=== PATIENT | male | born 1965 | race American Indian/Alaskan Native ===

== ENCOUNTER 2019-10-19 08:24 | Emergency (ER) | payer BC ==
[2019-10-19 08:49] VITALS: BP 135/84
--- NOTE | 2019-10-19 10:27 | Emergency Department Report ---
HPI - General Chief Complaint: Urogenital-Male Time Seen by Provider: 10/19/19 09:58 - HPI HPI: This is a 54-year-old -[place] male who presents to the emergency department with complaint of suprapubic pain that is been going on a few weeks but worsened over the past few days. The patient originally saw his primary care physician who felt that he may have BPH and he was referred to Dr. Farris, urology, who per the patient agreed with the treatment plan thus far. Patient recently went to 1 of the [facility] emergency departments for the same suprapubic pain, as well as some chest discomfort he was having. He says that he had a cardiac work-up there that was negative and he was told that "there is nothing wrong with my heart." Patient says that he stopped taking the prescribed Flomax a few days ago because he began having some strange burning sensation in his chest and he equated this to the Flomax, which was the last medication he had taken that evening. Patient says he is able to urinate but sometimes the stream is stronger than other times and the patient is unsure whether he fully empties his bladder. The patient says that he also had a diagnosis of prostatitis for which he is currently on Bactrim. ED Past Medical Hx - Past Medical History Previous Medical History?: Yes Additional medical history: Prostatitis - Surgical History Past Surgical History?: Yes Hx Appendectomy: Yes Additional Surgical History: Knee surgery - Social History Smoking Status: Never Smoker Substance Use Type: None ED Review of Systems ROS: Stated complaint: LOWER ABD PAIN Other details as noted in HPI Comment: All other systems reviewed and negative Constitutional: denies: chills, fever Respiratory: denies: shortness of breath Cardiovascular: denies: chest pain Gastrointestinal: abdominal pain. denies: vomiting Genitourinary: denies: dysuria, discharge Musculoskeletal: denies: back pain, arthralgia Physical Exam - Physical Exam Vital Signs: Vital Signs 10/19/19 08:28 Temperature 98.4 F Pulse Rate 90 Respiratory 17 Rate Blood Pressure 135/84 O2 Sat by Pulse 98 Oximetry Physical Exam: GENERAL: The patient is well-developed well-nourished. HENT: Normocephalic. Atraumatic. Patient has moist mucous membranes. EYES: Extraocular motions are intact. NECK: Supple. Trachea is midline. CHEST/LUNGS: Clear to auscultation. There is no respiratory distress noted. HEART/CARDIOVASCULAR: Regular. There is no tachycardia. There is no murmur. ABDOMEN: Abdomen is soft. There is some suprapubic tenderness to palpation. No guarding. Patient has normal bowel sounds. SKIN: Skin is warm and dry. NEURO: The patient is awake, alert, and oriented. The patient is cooperative. Normal speech. MUSCULOSKELETAL: There is no tenderness or deformity. There is no limitation range of motion. BACK: No midline thoracic or lumbar tenderness to palpation. ED Course Vital Signs 10/19/19 08:28 Temperature 98.4 F Pulse Rate 90 Respiratory 17 Rate Blood Pressure 135/84 O2 Sat by Pulse 98 Oximetry - Consultations Consultation #1: 10/19/19 12:13 I spoke with the patient's urologist, Dr. Farris, who listened to the presentation, examination, and lab results and feels that the patient is safe for discharge home to follow-up with him tomorrow in the office. The patient already has an appointment scheduled. The patient's Flomax has been switched to Uroxatrol. ED Medical Decision Making - Lab Data Result diagrams: 10/19/19 10:33 - Medical Decision Making This patient presents to the emergency department with suprapubic pain. This appears to be a consistent issue for him over the past few weeks. He just recently had a negative CT scan of the abdomen and pelvis through [facility]. He has been diagnosed with prostatitis and BPH and is on multiple medications for treatment including Bactrim. The patient had stopped the Flomax a few days ago as he thought he had a negative reaction to this medication. On examination there is some reproducible suprapubic tenderness to palpation. The rest of the patient's abdomen is soft, nondistended and nontoxic in appearance. No complaints of any back pain. We did a bladder scan prior to the patient voiding and he had about 700 mL of urine. He put out about 450 which does show some level of urinary retention. Urinalysis was done that does not show any current signs of urinary tract infection. Metabolic panel did not show any significant abnormalities including any significant renal insufficiency. Patient's urologist was contacted and agrees he is safe for discharge home at this time. He has an appointment with the urologist for tomorrow. The urologist also switched out the Flomax for Uroxatrol. Patient will return to the emergency department with any worsening of his symptoms or with any acute distress. Critical Care Time: No Critical care attestation.: If time is entered above; I have spent that time in minutes in the direct care o f this critically ill patient, excluding procedure time. ED Disposition Clinical Impression: Suprapubic pain, History of BPH, History of prostatitis Disposition: TO HOME OR SELFCARE Is pt being admited?: No Condition: Stable Additional Instructions: Please follow-up with Dr. Farris tomorrow as previously scheduled. Please follow-up with your primary care physician. Return to the emergency department with any worsening of your symptoms or with any acute distress. Take all of your medications as prescribed. Referrals: KEVEN FAN [Other] - 2-3 Days JOSIAS FARRIS MD [Staff Physician] - 10/20/19 Time of Disposition: 12:14
[2019-10-19 10:39] LABS: Bilirubin,Urine NEG (Negative); Blood,Urine NEG (Negative); Color,Urine Yellow (Yellow); Mucus,Urine FEW /HPF; Protein,Urine <15 mg/dL mg/dL (Negative); RBC,Urine < 1.0 /HPF (0.0-6.0); Urobilinogen,Urine < 2.0 mg/dL (<2.0); WBC,Urine < 1.0 /HPF (0.0-6.0)
[2019-10-19 11:25] LABS: Albumin 4.7 g/dL (3.9-5); Calcium 9.7 mg/dL (8.4-10.2)
== END 2019-10-19 12:41 | disposition home or self-care (01) ==
LOC: ED 08:24
DX: R10.30 Lower abdominal pain, unspecified (principal); Z87.430 Personal history of prostatic dysplasia; Z87.438 Personal history of other diseases of male genital organs; Z90.49 Acquired absence of other specified parts of digestive tract
CPT/HCPCS: 36415; 80053; 81001; 99283